=== PATIENT | male | born 1970 | race Caucasian/White ===

== ENCOUNTER 2018-08-25 00:17 | Emergency (ER) | payer MEDICAID, SELFPAY ==
[2018-08-25 00:17] VITALS: BP 109/71; PULSE 87; RESP 14; TEMP 36.2; O2SAT 97; BMI 27.3
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
--- NOTE | 2018-08-25 00:24 | RAD_ITS ---
HISTORY: fell 4 days ago from standing positionc/o rt hip pain COMPARISON: CT abdomen and pelvis 10/18/15. FINDINGS: # of images incl. paperwork: 3 XR Hip Unilateral with Pelvis when performed; 2-3 Views: Frontal pelvis, 2 view right hip. SOFT TISSUES: Unremarkable. No radiopaque foreign body. BONES: No acute fracture or subluxation. No sclerotic or destructive changes observed. JOINTS: Preservation of the joint space. Articular surfaces are unremarkable. RAD/HIP, UNI W/ Pelvis 2-3 Views IMPRESSION: Negative. at 0052 Reported and signed by: Juan Peña MD Electronically Signed: Juan Peña, at 0:51 EST Tel , Service support ,
[2018-08-25 00:55] VITALS: BP 146/89; PULSE 91; RESP 16; O2SAT 98
[2018-08-25] MEDS: HYDROcodone Bitartrate/Apap 5/325 Tablet PO ×2 (00:56)
== END 2018-08-25 01:05 | disposition home or self-care (01) ==
LOC: ED 00:55
PROVIDERS: Emergency Provider Emergency Medicine
DX: S70.01XA Contusion of right hip, initial encounter (principal); V19.9XXA Pedal cyclist (driver) (passenger) injured in unspecified traffic accident, initial encounter; Y93.55 Activity, bike riding; Y92.89 Other specified places as the place of occurrence of the external cause; Y99.9 Unspecified external cause status; Z72.0 Tobacco use
CPT/HCPCS: 73502; 99283

== ENCOUNTER 2019-05-15 13:05 | Emergency (ER) | payer MEDICAID, SELFPAY ==
[2019-05-15 13:06] VITALS: BP 107/67; PULSE 95; RESP 16; TEMP 37.1; O2SAT 98; BMI 28.5
--- NOTE | 2019-05-15 14:17 | RAD_ITS ---
STUDY: X-RAY CHEST REASON FOR EXAM: Male, 48 years old. Cough TECHNIQUE: Frontal and lateral views of the chest COMPARISON: 07/04/2016 FINDINGS: The lungs are clear. There are no pleural effusions. There is no pneumothorax. The heart is normal in size. The visualized osseous structures are within normal limits. RAD/Chest PA and Lateral IMPRESSION: No acute thoracic pathology. Electronically Signed: Philip Contreras, at 15:23 EST Tel , Service support ,
--- NOTE | 2019-05-15 14:17 | EKG12_ITS ---
Test Reason : GEN ILLNESS Blood Pressure : / mmHG Vent. Rate : 082 BPM Atrial Rate : 082 BPM P-R Int : 126 ms QRS Dur : 108 ms QT Int : 368 ms P-R-T Axes : 018 064 038 degrees QTc Int : 429 ms Normal sinus rhythm Normal ECG Confirmed by JEFF COTO MD ([id number]), image editor MENA MALONE ([id number]) on 05/17/2019 11:48:03 AM Referred By: ABDULKADIR Confirmed By:JEFF COTO MD
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
[2019-05-15 14:30] LABS: Absolute Lymphocyte Count 2.24 X10^3/uL (0.83-4.51); Absolute Neutrophil Count 5.3 X10^3/uL (2.0-7.7); Basophil# 0.12 X10^3/uL; Basophil% 1.3 % (0-1); Eosinophil# 0.13 X10^3/uL; Eosinophils% 1.4 % (0-5); Hemoglobin 16.5 g/dL (13.0-16.5); Lymphocyte # 2.24 X10^3/ul (4.0); Lymphocyte % 23.5 % (19-41); Mean Corp Hgb Conc 33.7 g/dL (32-36); Mean Corpuscular Hgb 29.8 pg (27.0-32.0); Mean Corpuscular Volume 88.4 fL (80-94); Mean Platelet Vol. 10.1 fl (6.2-12.0); Monocyte# 1.54 X10^3/uL; Monocyte% 16.2 % (0-10); NRBC Flagged by Analyzer 0 % (0-5); Neutrophil # 5.28 X10^3/uL (2.7-7.7); Neutrophil % 55.4 % (47-70); POSITIVE DIFFERENTIAL YES; POSITIVE MORPHOLOGY YES; Platelet Count 298 K/mm3 (150-450); RBC Distribution Width CV 14.1 % (11.6-14.6); RBC Distribution Width SD 45.3 fl (35.1-43.9); Red Blood Count 5.54 M/mm3 (4.6-6.2); White Blood Count 9.5 K/mm3 (4.4-11.0)
[2019-05-15 14:32] LABS: Differential Indicated SCAN CRITERIA MET
[2019-05-15 14:33] LABS: Carboxyhemoglobin Frac (CO) 2.4 % (0.0-1.5)
[2019-05-15 14:52] LABS: ALB/GLOB Ratio 0.7 RATIO (0.9-2.4); AST(SGOT) 2376 U/L (15-37); Alanine Aminotransfer ALT/SGPT 3424 U/L (16-61); Albumin, Serum 2.8 g/dL (3.2-5.0); Alkaline Phosphatase 202 U/L (45-117); Anion Gap 9 (5-15); BUN 15 mg/dL (7-18); BUN/Creat Ratio 16.7 RATIO (10-20); Calcium,Total 8.2 mg/dL (8.5-10.1); Chloride 98 mmol/L (98-107); EST Glomerular Filtration Rate 95 mL/min (>60); Est Glom Filt Rate - Afr Amer 115 mL/min (>60); Estimated Creatinine Clearance 98.19 ml/min; Globulin 4.3 g/dL (2.2-4.2); Glucose 126 mg/dL (74-106); Lipase 120 U/L (73-393); Potassium 3.8 mmol/L (3.5-5.1); Protein, Total 7.1 g/dL (6.4-8.2); Sodium Level 133 mmol/L (136-145)
[2019-05-15 14:55] LABS: Reactive Lymphocyte RARE
--- NOTE | 2019-05-15 15:11 | CT_ITS ---
STUDY: CT ABDOMEN AND PELVIS WITH CONTRAST REASON FOR EXAM: Male, 48 years old. Weakness. Nausea and vomiting. RADIATION DOSAGE (If Supplied By Facility): CTDIvol = ( 12.07 ) mGy, DLP = ( 731.25 ) mGycm TECHNIQUE: Transaxial images were obtained from the dome of the diaphragm to the symphysis pubis without oral contrast. 100 ml of Isovue 370 contrast was administered. Sagittal and coronal images were reconstructed. Individualized dose optimization techniques were used for this CT. COMPARISON: 10/18/2015 FINDINGS: The visualized lung bases are clear. The visualized portions of the heart and pericardium are within normal limits. There are no calcified gallstones present. There is a simple cyst noted in the liver. The spleen is normal in size. The pancreas is within normal limits. The adrenal glands are within normal limits. There are no renal or ureteral stones. There is no hydronephrosis. There are no focal renal lesions. Normal visualized stomach. There is no bowel obstruction or inflammation. The appendix is visualized and appears normal. The aorta is normal in caliber. There is no abdominal or pelvic free air, free fluid, fluid collection or lymphadenopathy. There are no destructive osseous lesions. CT/Abdomen/Pelvis W IV Cont ONLY IMPRESSION: No acute abdominal or pelvic pathology. Electronically Signed: Philip Contreras, at 16:01 EST Tel , Service support ,
[2019-05-15] MEDS: 0.9% Normal Saline 1,000 ML 1000 ML IV (15:34)
[2019-05-15 15:36] LABS: Internal QC Validated? YES +Cl - CLEAR BKGD; Monotest Negative (Negative)
[2019-05-15 15:39] LABS: Bilirubin, Direct 4.34 mg/dL (0.00-0.30)
[2019-05-15 16:00] LABS: Bacteria 0 SEEN /hpf (None Seen); Mucous, Urine 0 SEEN /hpf (<or=2+)
[2019-05-15 16:07] LABS: Color, Urine Amber (Yellow); Glucose, Dipstick Normal (Normal); Ketone-Dipstick Negative (Negative); Leukocyte Esterase-Dipstick 25 /ul (Negative); Nitrite-Dipstick Negative (Negative); Occult Blood-Urine 10 /ul (Negative); Protein-Dipstick 15 mg/dl (Negative); Specific Gravity, Urine 1.015 (1.002-1.030); Urine Clarity Clear (Clear); Urine Urobilinogen 8 mg/dl (Normal); Urine pH 6.5 (5.0 - 8.0)
[2019-05-15 16:10] LABS: Urine Bilirubin Dipstick 6 mg/dL (Negative)
[2019-05-15 16:12] LABS: Red Blood Cells-Urine 0-5 SEEN /hpf (0-5); Squamous Epithelial Cells - UA 0-5 SEEN /hpf (0-5); White Blood Cells 0-5 SEEN /hpf (0-5)
[2019-05-15 16:46] VITALS: RESP 18
--- NOTE | 2019-05-15 17:42 | NURSING ---
CARISSA CHRISTENSEN, FOR DR PANCHAL
--- NOTE | 2019-05-15 17:54 | NURSING ---
[facility] [address] GOLDSMITH [id number] BED 2 NURSE TO NURSE [phone]
--- NOTE | 2019-05-15 18:09 | NURSING ---
CALLED [facility] FOR TRANSPORT. ETA IS 30 MIN
[2019-05-15 18:16] VITALS: BP 118/73; PULSE 95; RESP 18; O2SAT 95
--- NOTE | 2019-05-15 18:22 | ED.RN ---
REPORT CALLED TO STAS AT [facility].
[2019-05-17 08:08] LABS: HEPATITIS B SURFACE AG Negative (Negative); Hepatitis B Core AB IgM Negative (Negative)
[2019-05-17 09:56] LABS: Hep C Antibodies <0.1 s/co ratio (0.0-0.9)
[2019-05-17 09:57] LABS: Hepatitis A IgM Antibody Positive (Negative)
--- NOTE | 2019-05-17 11:18 | ED.RN ---
LAB RESULTED POSITIVE HEP A IGM. RESULTED FAXED TO [facility] WHERE THEY PT WAS TRANSFERRED AND STILL REMAINS.
== END 2019-05-15 18:49 | disposition short-term general hospital (02) ==
LOC: ED 14:21
PROVIDERS: Emergency Provider Emergency Medicine
DX: K75.9 Inflammatory liver disease, unspecified (principal); R17 Unspecified jaundice; R53.81 Other malaise; R51 Headache; Z77.098 Contact with and (suspected) exposure to other hazardous, chiefly nonmedicinal, chemicals; Z59.0 Homelessness; F15.90 Other stimulant use, unspecified, uncomplicated
CPT/HCPCS: 71046; 74177; 80053; 80074; 81001; 82248; 82375; 83690; 84484; 85025; 86308; 93005; 96360; 96361; 99284; J7030; Q9967; A4216

== ENCOUNTER 2020-02-12 18:24 | Emergency (ER) | payer MEDICAID, SELFPAY ==
[2020-02-12 18:25] VITALS: BP 124/74; PULSE 89; RESP 21; TEMP 37.1; O2SAT 100; BMI 30.9
[2020-02-12] MEDS: DiphenhydrAMINE 50 MG/ML Syringe 25 MG IV (18:35)
[2020-02-12] MEDS: MethylPREDNISolone 125 MG/2 ML Vial IV (18:37)
[2020-02-12] MEDS: Famotidine 200 MG/20 ML MDV 20 MG in 0.9% Normal Saline (Pres. free 8 ML 300 MG IV (18:38)
[2020-02-12 19:38] VITALS: BP 128/85; PULSE 78; RESP 24; O2SAT 100
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
--- NOTE | 2020-02-12 19:50 | ED.DEP ---
ED Disposition - Plan for ED Patient: Instructions: ED BEE STING General Allergic Rxn Prescriptions: DiphenhydrAMINE [Benadryl] 25 mg PO TID 5 Days #15 cap Prescription Printed Famotidine [Pepcid] 20 mg PO BID 5 Days #10 tab Prescription Printed Prednisone 60 mg PO DAILY 4 Days #24 tab Prescription Printed Referrals: Karie Mcintyre [NON-STAFF] -
[2020-02-12 20:07] VITALS: BP 128/88; RESP 14
== END 2020-02-12 20:08 | disposition home or self-care (01) ==
LOC: ED 19:25
PROVIDERS: Emergency Provider Emergency Medicine
DX: T63.441A Toxic effect of venom of bees, accidental (unintentional), initial encounter (principal); Y92.9 Unspecified place or not applicable; Z59.0 Homelessness
CPT/HCPCS: 96374; 96375; 99285; J3490

== ENCOUNTER 2020-04-12 10:56 | Emergency (ER) | payer MEDICAID, SELFPAY ==
[2020-04-12 10:57] VITALS: BP 106/74; PULSE 96; RESP 16; TEMP 35.7; O2SAT 98; BMI 24.3
--- NOTE | 2020-04-12 11:21 | ED.VISSUMM ---
- ER Visit Summary Date of Service: 04/12/20 Chief Complaint: Skin color is yellow and fatigued History of Present Illness: The patient is a 49 M history of prior hepatitis with prior jaundice about a year ago for which she was treated at [facility]. They states for the last week he is also become jaundiced again and just felt tired and fatigued. He denies any nausea, vomiting or diarrhea. Denies any melena. Denies any fever or chills. Denies any IV drug abuse. Does use methamphetamine. Denies any alcohol use as he has not drank for 18 years. Says he has no pain. Physical Examination: Middle-aged male no acute distress vital signs stable afebrile. He is obvious jaundice and scleral icterus. H EENT exam otherwise unremarkable. Neck nontender. Lungs clear to auscultation bilaterally. Heart regular rhythm rate in the 90s. No murmur. Abdomen soft nontender normal bowel sounds no peritoneal signs. Extremities moves all 4. Calves are nontender without edema. Neurologically is awake alert with no focal motor deficits. Skin jaundice. No bruising. Back nontender. Neurologically is awake alert with no focal motor deficits. Answering questions and following commands. Test Results: CBC normal white count 9. Hemoglobin 14. No bands. Chemistries unremarkable normal creatinine and gap. Liver enzymes are elevated total bilirubin 11 direct 8.5 alk phos 146 ALT 1834 AST 683. Lipase normal. Patient had a prior CAT scan less than a year ago which showed no gallstones. He is having no pain today I do not feel he needs acute imaging. Emergency Department Course and Treatment: Patient has obvious jaundice he had jaundiced a year ago states that time he was diagnosed with hepatitis A, B and C. Treatment Plan: I spoke to the hospitalist here at [facility] they prefer the patient get transferred for GI consultation if needed. I have already spoken to both hospitals in [place] and also [facility] they are unable to accept the patient at this time. Disposition: [] Impression: Acute jaundice with liver failure History hepatitis History of methamphetamine abuse This note was generated with [employer] dictation software. It may contain incorrect words, spelling, and punctuation that were not noted in review of the chart prior to signing ED Disposition - Plan for ED Patient: Referrals: Care Physician,No Primary [Primary Care Provider] -
[2020-04-12 11:37] LABS: Absolute Lymphocyte Count 3.22 X10^3/uL (0.83-4.51); Absolute Neutrophil Count 4.8 X10^3/uL (2.0-7.7); Basophil# 0.11 X10^3/uL; Basophil% 1.1 % (0-1); Eosinophil# 0.28 X10^3/uL; Eosinophils% 2.8 % (0-5); Hematocrit 42.1 % (40-54); Hemoglobin 14.9 g/dL (13.0-16.5); Lymphocyte # 3.22 X10^3/ul (4.0); Lymphocyte % 32.7 % (19-41); Mean Corp Hgb Conc 35.4 g/dL (32-36); Mean Corpuscular Hgb 29.6 pg (27.0-32.0); Mean Corpuscular Volume 83.7 fL (80-94); Mean Platelet Vol. 9.7 fl (6.2-12.0); Monocyte# 1.29 X10^3/uL; Monocyte% 13.1 % (0-10); NRBC Flagged by Analyzer 0 % (0-5); Neutrophil # 4.77 X10^3/uL (2.7-7.7); Neutrophil % 48.6 % (47-70); Platelet Count 455 K/mm3 (150-450); RBC Distribution Width SD 57.2 fl (35.1-43.9); Red Blood Count 5.03 M/mm3 (4.6-6.2); White Blood Count 9.8 K/mm3 (4.4-11.0)
[2020-04-12 12:05] LABS: AST(SGOT) 683 U/L (15-37); Alanine Aminotransfer ALT/SGPT 1834 U/L (16-61); Albumin, Serum 3.1 g/dL (3.2-5.0); Alkaline Phosphatase 146 U/L (45-117); Anion Gap 5 (5-15); BUN 14 mg/dL (7-18); BUN/Creat Ratio 17.9 RATIO (10-20); Bilirubin, Direct 8.53 mg/dL (0.00-0.30); Calcium,Total 8.8 mg/dL (8.5-10.1); Chloride 101 mmol/L (98-107); Creatinine, Serum 0.78 mg/dL (0.70-1.30); EST Glomerular Filtration Rate 111 mL/min (>60); Est Glom Filt Rate - Afr Amer 134 mL/min (>60); Estimated Creatinine Clearance 112.04 ml/min; Globulin 4.2 g/dL (2.2-4.2); Glucose 106 mg/dL (74-106); Lipase 102 U/L (73-393); Potassium 3.5 mmol/L (3.5-5.1); Protein, Total 7.3 g/dL (6.4-8.2); Sodium Level 135 mmol/L (136-145)
[2020-04-12 14:26] VITALS: BP 118/69; PULSE 74; RESP 15; TEMP 36.2; O2SAT 99
[2020-04-12 14:30] VITALS: BP 118/69; PULSE 15; TEMP 36.2; O2SAT 99
[2020-04-12 14:40] LABS: International Normalized Ratio 1.2; Prothrombin Time (Protime)PT. 14.2 SECONDS (11.7-14.9)
[2020-04-12 14:41] LABS: Partial Thromboplast Time 34.2 Seconds (24.1-36.2)
== END 2020-04-12 15:10 | disposition short-term general hospital (02) ==
PROVIDERS: Emergency Provider Emergency Medicine
DX: K72.90 Hepatic failure, unspecified without coma (principal); F15.10 Other stimulant abuse, uncomplicated; Z86.19 Personal history of other infectious and parasitic diseases; Z72.0 Tobacco use
CPT/HCPCS: 80048; 80076; 83690; 85025; 85610; 85730; 99281; 99284; A4216

== ENCOUNTER 2021-07-09 22:22 | Emergency (ER) | payer MEDICAID, SELFPAY ==
[2021-07-09 22:23] VITALS: BP 125/81; PULSE 91; RESP 20; TEMP 36.9; O2SAT 96; BMI 33.5
--- NOTE | 2021-07-09 23:06 | EKG12_ITS ---
Test Reason : DYSRHYTHMIA Blood Pressure : / mmHG Vent. Rate : 080 BPM Atrial Rate : 080 BPM P-R Int : 138 ms QRS Dur : 116 ms QT Int : 388 ms P-R-T Axes : 049 -08 020 degrees QTc Int : 447 ms Normal sinus rhythm Normal ECG Confirmed by YUKI OSUNA, DARNELL ([id number]), multimedia editor EDI BARTON ([id number]) on 07/10/2021 1:40:25 PM Referred By: JAM Confirmed By:DARNELL MIRZA MD
[2021-07-09] MEDS: 0.9% Normal Saline 1,000 ML 999 ML IV (23:20)
[2021-07-09] MEDS: Mag Hydrox/Al Hydrox/Simeth 30 ML UDC PO (23:20)
[2021-07-09] MEDS: Ketorolac 30 MG/ML Syringe IV (23:22)
[2021-07-09] MEDS: Orphenadrine 60 MG/2 ML Ampul IV (23:24)
[2021-07-09 23:36] LABS: Absolute Lymphocyte Count 1.87 X10^3/uL (0.83-4.51); Absolute Neutrophil Count 2.5 X10^3/uL (2.0-7.7); Basophil# 0.09 X10^3/uL; Basophil% 1.4 % (0-1); Eosinophils% 1.6 % (0-5); Hematocrit 48.2 % (40-54); Hemoglobin 15.9 g/dL (13.0-16.5); Lymphocyte # 1.87 X10^3/ul (0.83-4.51); Lymphocyte % 30.1 % (19-41); Mean Corpuscular Hgb 29.1 pg (27.0-32.0); Mean Corpuscular Volume 88.3 fL (80-94); Monocyte# 1.63 X10^3/uL; Monocyte% 26.2 % (0-10); NRBC Flagged by Analyzer 0 % (0-5); Neutrophil # 2.48 X10^3/uL (2.7-7.7); Neutrophil % 39.9 % (47-70); POSITIVE DIFFERENTIAL YES; Platelet Count 278 K/mm3 (150-450); RBC Distribution Width CV 13.7 % (11.6-14.6); RBC Distribution Width SD 44.3 fl (35.1-43.9); Red Blood Count 5.46 M/mm3 (4.6-6.2); White Blood Count 6.2 K/mm3 (4.4-11.0)
[2021-07-09 23:58] LABS: AST(SGOT) 17 U/L (15-37); Alanine Aminotransfer ALT/SGPT 24 U/L (16-61); Albumin, Serum 3.7 g/dL (3.2-5.0); Alkaline Phosphatase 64 U/L (45-117); Anion Gap 10 (5-15); BUN 18 mg/dL (7-18); BUN/Creat Ratio 19.6 RATIO (10-20); Bilirubin, Direct 0.06 mg/dL (0.00-0.30); Calcium,Total 8.4 mg/dL (8.5-10.1); Chloride 104 mmol/L (98-107); Creatinine, Serum 0.92 mg/dL (0.70-1.30); EST Glomerular Filtration Rate 92 mL/min (>60); Est Glom Filt Rate - Afr Amer 111 mL/min (>60); Estimated Creatinine Clearance 93.93 ml/min; Globulin 4.3 g/dL (2.2-4.2); Glucose 118 mg/dL (74-106); Lipase 95 U/L (73-393); Potassium 3.7 mmol/L (3.5-5.1); Sodium Level 139 mmol/L (136-145); Troponin-I HS 4 pg/mL (3.0-78.0)
[2021-07-10 00:02] LABS: Differential Indicated SCAN CRITERIA MET
[2021-07-10 00:50] VITALS: PULSE 75; RESP 18; O2SAT 92
--- NOTE | 2021-07-10 00:54 | EDS_ITS ---
HPI History of Present Illness Chief Complaint: Abd Pain Narrative Narrative: Patient is a 50-year-old male who states that he noticed upper back pain today that is worse with motion as well as abdominal burning. He states that there was no trauma or excessive activity before his back began hurting. He states the pain is localized between his shoulder blades. He states that it does worsen when he sits up or lies down but that it does not radiate. He denies any pain with inspiration. He states that he has no history of IV drug use although he used to smoke and snort methamphetamine and he denies any loss of bowel or bladder control. He states that the pain was not improving at home and secondary to this he called EMS to bring him in for evaluation. [facility] Medical History History of liver failure Home Medications famotidine [Pepcid] 20 mg PO BID 30 Days #60 tab 07/10/21 [Rx Last Taken Unknown] ketorolac 10 mg PO Q6H PRN 5 Days #20 tab 07/10/21 [Rx Last Taken Unknown] methocarbamol 1,000 mg PO Q6H PRN 7 Days #56 tab 07/10/21 [Rx Last Taken Unknown] Allergy/AdvReac Type Severity Reaction Status Date / Time No Known Allergies Allergy Verified 07/09/21 22:29 Social History Smoking Status: Current every day smoker tobacco type: cigarettes ROS ROS ED Constitutional Constitutional ED: Denies chills or fever(s) ENT ENT ED: Denies sore throat Cardiovascular Cardiovascular: Denies chest pain Respiratory/Chest Respiratory/Chest: Denies cough or dyspnea Gastrointestinal Gastrointestinal: Reports abdominal pain; Denies diarrhea, nausea or vomiting Genitourinary Genitourinary ED: Denies dysuria Musculoskeletal Musculoskeletal: Reports back pain; Denies myalgias Integumentary Denies rash Neurologic Neurologic: Denies headache(s) Hematologic/Lymphatic Hematologic/Lymphatic: Denies easy bleeding or easy bruising EXAM Physical Exam Const Vital Signs: 07/09/21 22:23 07/10/21 00:50 Temperature 98.5 F Temperature Source Oral Pulse Rate 91 75 Respiratory Rate 20 H 18 Blood Pressure 125/81 H Blood Pressure Mean 95 Pulse Ox 96 92 Oxygen Delivery Method Room Air Room Air Positive well nourished and well developed General Appearance ED: well developed HEENT Reports moist mucous membranes Eyes PERRL and EOMs intact bilaterally Neck supple Chest Wall palpation of chest normal Resp normal respiratory effort and clear to auscultation bilaterally Cardio regular rate and regular rhythm Rate: other Other Details: Radial pulses are plus 2 out of 4 bilateral they are equal and GI normal to inspection, nondistended, normoactive bowel sounds, non-tender, non- distended and no masses GI Narrative: No voluntary guarding or rigidity no pulsatile Auscultation: normoactive bowel sounds Palpation: soft Back/Spine Back/Spine Narrative: No bony deformity or step-off of the thoracic or lumbar spine. There is mild pain on palpation of the upper lumbar spine and this pain does worsen with flexion or extension. Extremity normal to inspection Extremity Narrative: No asymmetric edema no pitting edema negative Homans' sign bilaterally Neuro oriented x3 and CN's II-XII intact bilaterally Sensorium / Orientation: alert Motor Exam: strength 5/5 throughout Psych mental status grossly normal Skin no rashes or lesions noted MDM MDM MDM Narrative Medical decision making narrative: Patient presented to the ER complaining of 2 separate areas of pain. He complained of pain in his upper mid back that was worse with motion as well as an abdominal burning sensation. With his upper back pain I was concerned he could be having a pulmonary embolus dissection or even cardiac event and therefore elected to perform basic laboratory studies with a CTA of his chest. I did not feel there was a need for a CT of his abdomen as he had no rigidity guarding or pain with palpation. The patient's blood work shows no clinically significant findings with no leukocytosis or elevation to his liver enzymes and his initial and delta troponin are normal. The CTA revealed no PE dissection pneumothorax or lung pathology. He was given IV fluids Toradol Norflex and a GI cocktail. On reevaluation the patient reports he is had much improvement in his pain. His abdomen remains soft and nonsurgical. Therefore this time I feel he is having musculoskeletal back pain as well as gastritis and with work-up being negative overall and having improvement of symptoms can be placed on symptomatic medications and discharged home. Lab Data Attestation: I reviewed the patient's lab results. Labs: Laboratory Results - last 24 hr 07/09/21 07/09/21 07/10/21 23:19 23:19 01:16 WBC 6.2 RBC 5.46 Hgb 15.9 Hct 48.2 MCV 88.3 MCH 29.1 MCHC 33.0 RDW Std Deviation 44.3 H RDW Coeff of Mina 13.7 Plt Count 278 MPV 9.0 Immature Gran % (Auto) 0.800 Neut % (Auto) 39.9 L Lymph % (Auto) 30.1 [place] % (Auto) 26.2 H Eos % (Auto) 1.6 Baso % (Auto) 1.4 H Absolute Neuts (auto) 2.5 Absolute Lymphs (auto) 1.87 Nucleated RBC % 0 Sodium 139 Potassium 3.7 Chloride 104 Carbon Dioxide 25.0 Anion Gap 10 BUN 18 Creatinine 0.92 Estim Creat Clear Calc 93.93 Est GFR (MDRD) Af Amer 111 Est GFR (MDRD) Non-Af 92 BUN/Creatinine Ratio 19.6 Glucose 118 H Calcium 8.4 L Total Bilirubin 0.20 Direct Bilirubin 0.06 AST 17 ALT 24 Alkaline Phosphatase 64 Troponin I High Sens 4 5 Total Protein 8.0 Albumin 3.7 Globulin 4.3 H Lipase 95 Radiography Diagnostic Testing: Clinical Impression(s) from Imaging Studies Chest CTA 07/10/21 23:06 IMPRESSION: No acute findings in the chest. No pulmonary embolus or thoracic aortic dissection. Small hiatal hernia. Coronary artery calcifications. Electronically Signed: Saravanan Head MD at 1:08 EST , Service support , Discharge Plan Triage Chief Complaint: Abd Pain ED Provider: Willard Dunn Dx/Rx/DC Orders Clinical Impression: Acute thoracic myofascial strain, Acute gastritis Instructions: ED Back Sprain/Strain, ED Gastritis (Adult) Prescriptions: New methocarbamol 500 mg tablet 1,000 mg PO Q6H PRN (Reason: Muscle pain/spasm) 7 Days Qty: 56 RF: 0 ketorolac 10 mg tablet 10 mg PO Q6H PRN (Reason: pain) 5 Days Qty: 20 RF: 0 famotidine [Pepcid] 20 mg tablet 20 mg PO BID 30 Days Qty: 60 RF: 0 Primary Care Provider: Care Physician,No Primary Referrals: Renetta Mercado MD [STAFF PHYSICIAN] - 1 Week if not improving Care Physician,No Primary [Primary Care Provider] - Disposition Disposition: Home, Self Care
[2021-07-10 01:37] LABS: Troponin-I HS 5 pg/mL (3.0-78.0)
[2021-07-10 02:07] VITALS: BP 112/71; PULSE 72; RESP 16; O2SAT 94
--- NOTE | 2021-07-10 23:06 | CT_ITS ---
STUDY: CTA CHEST REASON FOR EXAM: Male, 50 years old. chest pain RADIATION DOSAGE (If Supplied By Facility): CTDIvol = ( 13.68 ) mGy, DLP = ( 495.88 ) mGycm TECHNIQUE: The examination was performed with the intravenous administration of 100 mL Isovue-370. Post-processing of the angiographic images was performed, with multiplanar reformation and maximum intensity projections.. Individualized dose optimization techniques were used for this CT. COMPARISON: Chest x-ray May 15, 2019. FINDINGS: Normal enhancement of the main pulmonary artery and right and left pulmonary arteries. Normal enhancement of the bilateral peripheral pulmonary arteries. There is no demonstrated pulmonary embolism. Normal thoracic aorta and visualized great vessels. There is no demonstrated aortic dissection. The heart is not enlarged. Small localized coronary artery calcifications. No pericardial effusion. Normal mediastinum. Normal hilar regions. Small hiatal hernia. Normal visualized trachea and bronchi. The lungs are well expanded. No focal infiltrates or effusions. No pneumothorax. Normal pleura. Normal chest wall structures. Mild degenerative changes of the thoracic spine. Normal visualized upper abdomen. CT/CTA Chest W/WO Contrast IMPRESSION: No acute findings in the chest. No pulmonary embolus or thoracic aortic dissection. Small hiatal hernia. Coronary artery calcifications. Electronically Signed: Saravanan Head MD at 1:08 EST , Service support ,
== END 2021-07-10 02:08 | disposition home or self-care (01) ==
PROVIDERS: Emergency Provider Emergency Medicine; Visit Provider Emergency Medicine
DX: K29.00 Acute gastritis without bleeding (principal); S29.019A Strain of muscle and tendon of unspecified wall of thorax, initial encounter; X58.XXXA Exposure to other specified factors, initial encounter; Y93.9 Activity, unspecified; Y92.9 Unspecified place or not applicable; F17.210 Nicotine dependence, cigarettes, uncomplicated
CPT/HCPCS: 71275; 80048; 80076; 83690; 84484; 85025; 93005; 96361; 96374; 96375; 99285; J7030; Q9967; A4216

== ENCOUNTER 2022-01-24 15:42 | Emergency (ER) | payer MEDICAID, SELFPAY ==
[2022-01-24 15:43] VITALS: BP 110/74; PULSE 100; RESP 16; TEMP 36.6; O2SAT 95; BMI 31.0
--- NOTE | 2022-01-24 16:00 | CT_ITS ---
STUDY: CT BRAIN WITHOUT CONTRAST REASON FOR EXAM: Male, 51 years old. Headache RADIATION DOSAGE (If Supplied By Facility): CTDIvol = ( 44.99 ) mGy, DLP = ( 829.85 ) mGycm TECHNIQUE: Transaxial CT imaging of the brain was performed without administration of intravenous contrast material. Individualized dose optimization techniques were used for this CT. COMPARISON: 11/27/2016 FINDINGS: Normal soft tissue structures. Normal calvarium. Normal size ventricles and extra-axial spaces for the patient''s age. Normal white matter tracts of the cerebral hemispheres. Normal basal ganglia and thalami. Normal brainstem. Normal cerebellum. There is no intracranial hemorrhage. There are no findings of an acute ischemic infarction. Normal visualized paranasal sinuses. CT/Brain/Head without Contrast IMPRESSION: No acute intracranial process. Electronically Signed: Colleen Rhoades MD at 16:33 EDT ,
--- NOTE | 2022-01-24 16:03 | EX.ED.VIS.HA ---
HPI History of Present Illness Chief Complaint: Headache Informant: patient Onset/Context/Timing Onset: Weeks Context: Gradual Timing: Intermittent Quality -Headache: Negative for Similar Prior Headaches Current Severity: Mild Maximum Severity: Moderate Associated Symptoms/Injury Associated Symptoms: Positive for Photophobia; Negative for Fever, Nausea, Vomiting, Sore Throat, Sinus Pressure, Numbness, Tingling, Preceding Aura, Visual Changes, Blurred Vision or Visual Loss Injury - REAVES: Negative for Direct Trauma Narrative Narrative: 51-year-old male no seen past medical or surgical history. Since last 2 weeks he has had headaches. He said he never gets headaches. He denies any head or neck trauma. He denies any fall or injury. He is on no blood thinners. In fact he is on no medication. As it begins in his posterior scalp area usually gradual in onset. Associated with photophobia and sonophobia. He denies any fever. He denies any neck pain. He denies any weakness to his upper or lower extremities. There is no family history of any significant headaches or family history of intracranial bleeds or aneurysms. Currently says mild and resolving. Nothing specifically makes it better or worse other than possibly light. Prior similar symptoms: No Recent Illness/Hospitalization: No PFSH PFSH Medical History History of liver failure Home Medications NK 01/24/22 [History Last Taken Unknown] Allergy/AdvReac Type Severity Reaction Status Date / Time No Known Allergies Allergy Verified 01/24/22 15:45 Social History Smoking Status: Current every day smoker tobacco type: cigarettes ROS ROS ED ROS Narrative Headache Review of Systems ROS Unobtainable: Denies due to encephalopathy Constitutional Constitutional ED: Denies chills or fever(s) Eyes Eyes: Denies blurry vision ENT ENT ED: Denies ear pain Cardiovascular Cardiovascular: Denies chest pain Respiratory/Chest Respiratory/Chest: Denies cough or dyspnea Gastrointestinal Gastrointestinal: Denies abdominal pain, constipation, diarrhea, melena or nausea Genitourinary Genitourinary ED: Denies dysuria Musculoskeletal Musculoskeletal: Denies arthralgias Integumentary Denies abscess Neurologic Neurologic: Reports headache(s); Denies paresthesias or weakness Psychiatric Psychiatric: Denies anxiety Endocrine Endocrinology: Denies polydipsia Hematologic/Lymphatic Hematologic/Lymphatic: Denies easy bleeding Allergic/Immunologic Allergic/Immunologic ED: Denies mouth swelling EXAM Physical Exam Narrative Exam Narrative: 48-year-old male vital signs stable afebrile. Initial blood pressure 110/74. He does not look septic or toxic. He is no distress. H EENT exam unremarkable. Scalp is nontender. No trauma. Pupils round reactive light his motions are intact. No facial droop. Neck nontender. No lymphadenopathy. No meningismus. Lungs clear to auscultation. Heart regular rhythm no murmur. Chest were nontender. Abdomen soft nontender. Pelvic girdle intact. Moving all 4 extremities. Normal 5-5 screen vent binder strength. Dorsi plantarflexion intact. Back nontender. Skin normal. No rashes. No petechiae or purpura. Neurologically is awake alert with no focal motor deficits. NIH is 0. Fingertip to nose and [id number] within normal limits. Normal exam. Const Vital Signs: 01/24/22 15:43 Temperature 98 F Temperature Source Temporal Pulse Rate 100 Respiratory Rate 16 Blood Pressure 110/74 Blood Pressure Mean 86 Pulse Ox 95 Oxygen Delivery Method Room Air Positive well nourished; Negative for cachectic, contractures or unkempt General Appearance ED: Negative for unkempt, cachectic or contractures Nutritional Appearance: Negative for cachectic HEENT Reports normocephalic and moist mucous membranes; Denies dry mucous membranes atraumatic; Negative for trauma, tenderness, temporal artery tenderness or vesicular rash Mouth ED: No dry mucous membranes Mouth: No dry mucous membranes Eyes PERRL and EOMs intact bilaterally General Eye ED: Negative for pale conjunctiva Neck no lymphadenopathy, supple, no meningeal signs and no JVD Resp normal respiratory effort and clear to auscultation bilaterally Effort and Inspection: Negative for retractions or pain with movement Auscultation: Negative for rales, rhonchi or wheezes Cardio regular rate, regular rhythm, S1 normal heart sound, S2 normal heart sound and no murmurs Rate: Negative for bradycardia Rhythm: Negative for abnormal rhythm GI non-tender and non-distended Auscultation: normoactive bowel sounds Palpation: soft; Negative for firm, tender, guarding or rigid Back/Spine no CVA tenderness General Back: Negative for CVA tenderness Cervical Spine: Negative for cervical spine tenderness Thoracic Spine / Upper Back: Negative for thoracic spinal tenderness Lumbar Spine / Lower Back: Negative for lumbar spinal tenderness Extremity normal to inspection General Extremety ED: Negative for edema or tenderness General Extremity: Negative for edema Neuro oriented x3, CN's II-XII intact bilaterally and no sensory deficits noted Sensorium / Orientation: awake, alert, oriented to person, oriented to place and oriented to time; Negative for orientation impaired, lethargic or stuporous Coordination / Balance: [id number] test normal and [id number] test normal Speech: speech normal Motor Exam: strength 5/5 throughout Psych mental status grossly normal Appearance: Negative for unkempt Attitude: No agitated Mood & Affect: Negative for depressed or anxious Skin Lesions: no lesions Rashes: no rashes Trauma: Negative for abrasion MDM MDM MDM Narrative Medical decision making narrative: 51-year-old male with intermittent gradual onset headaches for the last 2 weeks. Exam and neurologic exam are all normal. CAT scan of his brain is being obtained. Repeat exam patient is doing well. Exam remains normal. He and I went over his normal CAT scan results. To be discharged home. He has no primary care physician I will give him a primary care provider to follow-up with. Impression is headaches of uncertain etiology. Radiography Diagnostic Testing: Clinical Impression(s) from Imaging Studies Brain CT 01/24/22 16:00 IMPRESSION: No acute intracranial process. Electronically Signed: Colleen Rhoades MD at 16:33 EDT Reading Location ID and State: [facility] / [place] Tel , Service support , Discharge Plan Triage Chief Complaint: Headache ED Provider: Chris Rucker Dx/Rx/DC Orders Clinical Impression: Headache Instructions: ED Headache Unspecified Prescriptions: No Action NK Primary Care Provider: Care Physician,No Primary Referrals: Ronald Arriaza MD [Med Staff - Aircraft Manager] - 1 Week if not improving Care Physician,No Primary [Primary Care Provider] - Activity Restrictions/Additional Instructions: Your CAT scan today was unremarkable. Motrin and Tylenol for headaches. Follow-up with a local physician if is not improving for further evaluation. Disposition Disposition: Home, Self Care
[2022-01-24 18:41] VITALS: BP 109/78; RESP 16
== END 2022-01-24 18:42 | disposition home or self-care (01) ==
PROVIDERS: Emergency Provider Emergency Medicine; Visit Provider Emergency Medicine
DX: R51.9 Headache, unspecified (principal); F17.210 Nicotine dependence, cigarettes, uncomplicated; H53.149 Visual discomfort, unspecified
CPT/HCPCS: 70450; 99282